=== PATIENT | male | born 1945 | race Two or more races ===

== ENCOUNTER 2019-06-25 14:56 | Emergency (ER) | payer OTHER ==
[~2019-06-25] VITALS: Ht 177.8 cm; Wt 100.7 kg
[2019-06-25] MEDS ORDERED: SODIUM BICARBONATE 8.4% INJ 50ML SYRINGE IV ONE (14:57)
[2019-06-25] MEDS ORDERED: EPINEPHrine HCL 1 MG/10 ML SYRG IV ONE (14:57)
[2019-06-25] MEDS ORDERED: CALCIUM CHLOR(10%) 100MG/ML 10ML SYRINGE IV ONE (14:57)
== END 2019-06-25 22:11 | disposition expired ==
LOC: ER 14:56
DX: I46.9 Cardiac arrest, cause unspecified (principal); R41.82 Altered mental status, unspecified; R78.5 Finding of other psychotropic drug in blood; I10 Essential (primary) hypertension; I25.2 Old myocardial infarction
CPT/HCPCS: 31500; 92950; 99285; J0171